=== PATIENT | female | born 1975 | race Caucasian/White ===

== ENCOUNTER 2021-11-19 08:11 | Outpatient (CLI) | payer OTHER ==
[~2021-11-19 08:11] MED LIST: KETO10TA2 PO; LEVSIN/SL0.125 MG SL; TAMS0.4C PO
== END 2021-11-19 08:17 | disposition home or self-care (01) ==
LOC: SONOGRAMA 08:11
DX: K76.0 Fatty (change of) liver, not elsewhere classified (principal)

== ENCOUNTER 2022-02-20 06:47 | Outpatient (CLI) | payer OTHER | END 2022-02-20 06:48 | disposition home or self-care (01) | LOC: LAB 06:47 | PROVIDERS: ATTEND Surgery | DX: D46.4 Refractory anemia, unspecified (principal); E11.9 Type 2 diabetes mellitus without complications; E03.9 Hypothyroidism, unspecified; E54 Ascorbic acid deficiency; E55.9 Vitamin D deficiency, unspecified; D51.9 Vitamin B12 deficiency anemia, unspecified; B96.81 Helicobacter pylori [H. pylori] as the cause of diseases classified elsewhere ==

== ENCOUNTER 2022-02-21 15:33 | Outpatient (CLI) | payer OTHER | END 2022-02-21 15:37 | disposition home or self-care (01) | LOC: LAB 15:33 | PROVIDERS: ATTEND Surgery | DX: D46.4 Refractory anemia, unspecified (principal); E11.9 Type 2 diabetes mellitus without complications; E03.9 Hypothyroidism, unspecified; E54 Ascorbic acid deficiency; E55.9 Vitamin D deficiency, unspecified; D51.9 Vitamin B12 deficiency anemia, unspecified; B96.81 Helicobacter pylori [H. pylori] as the cause of diseases classified elsewhere ==

== ENCOUNTER 2022-04-25 14:16 | Outpatient (CLI) | payer OTHER | END 2022-04-25 14:17 | disposition home or self-care (01) | LOC: LAB 14:16 | DX: O11.1 Pre-existing hypertension with pre-eclampsia, first trimester (principal); U07.1 COVID-19 ==

== ENCOUNTER 2022-06-08 09:17 | Outpatient (CLI) | payer OTHER | END 2022-06-08 09:19 | disposition home or self-care (01) | LOC: LAB 09:17 | DX: D46.4 Refractory anemia, unspecified (principal); G47.33 Obstructive sleep apnea (adult) (pediatric) ==

== ENCOUNTER 2022-06-21 15:29 | Outpatient (CLI) | payer OTHER | END 2022-06-21 15:33 | disposition home or self-care (01) | LOC: LAB 15:29 | DX: R09.2 Respiratory arrest (principal) ==

== ENCOUNTER 2022-06-26 14:41 | Outpatient (CLI) | payer OTHER | END 2022-06-26 14:45 | disposition home or self-care (01) | LOC: LAB 14:41 | PROVIDERS: ATTEND General Practice | DX: D64.9 Anemia, unspecified (principal) ==

== ENCOUNTER 2022-08-06 16:17 | Outpatient (CLI) | payer OTHER | END 2022-08-06 16:27 | disposition home or self-care (01) | LOC: LAB 16:17 | PROVIDERS: ATTEND Internal Medicine | DX: N39.0 Urinary tract infection, site not specified (principal); Z00.00 Encounter for general adult medical examination without abnormal findings ==

== ENCOUNTER 2022-09-09 16:41 | Outpatient (CLI) | payer OTHER | END 2022-09-09 16:45 | disposition home or self-care (01) | LOC: LAB 16:41 | PROVIDERS: ATTEND Surgery | DX: K76.0 Fatty (change of) liver, not elsewhere classified (principal) ==

== ENCOUNTER 2022-09-17 10:58 | Outpatient (CLI) | payer OTHER | END 2022-09-17 10:59 | disposition home or self-care (01) | LOC: LAB 10:58 | DX: J11.1 Influenza due to unidentified influenza virus with other respiratory manifestations (principal) ==

== ENCOUNTER 2022-09-18 09:28 | Emergency (ER) | payer OTHER ==
[~2022-09-18] VITALS: Ht 167.6 cm; Wt 112.5 kg
== END 2022-09-18 13:24 | disposition home or self-care (01) ==
LOC: ER 09:28
DX: J11.1 Influenza due to unidentified influenza virus with other respiratory manifestations (principal)

== ENCOUNTER 2022-10-05 10:07 | Outpatient (CLI) | payer OTHER | END 2022-10-05 10:10 | disposition home or self-care (01) | LOC: LAB 10:07 | PROVIDERS: ATTEND Surgery | DX: E03.9 Hypothyroidism, unspecified (principal); K21.9 Gastro-esophageal reflux disease without esophagitis; Z11.59 Encounter for screening for other viral diseases ==

== ENCOUNTER 2022-10-11 16:40 | Outpatient (CLI) | payer OTHER | END 2022-10-11 16:54 | disposition home or self-care (01) | LOC: LAB 16:40 | PROVIDERS: ATTEND Surgery | DX: D46.4 Refractory anemia, unspecified (principal); E11.9 Type 2 diabetes mellitus without complications; E03.9 Hypothyroidism, unspecified; E54 Ascorbic acid deficiency; E55.9 Vitamin D deficiency, unspecified; D51.9 Vitamin B12 deficiency anemia, unspecified; R19.5 Other fecal abnormalities; Z11.59 Encounter for screening for other viral diseases ==

== ENCOUNTER 2023-02-05 15:56 | Outpatient (CLI) | payer OTHER | END 2023-02-05 15:58 | disposition home or self-care (01) | LOC: LAB 15:56 | PROVIDERS: ATTEND Surgery | DX: D46.4 Refractory anemia, unspecified (principal); E11.9 Type 2 diabetes mellitus without complications; E03.9 Hypothyroidism, unspecified; E54 Ascorbic acid deficiency; E55.9 Vitamin D deficiency, unspecified; D51.9 Vitamin B12 deficiency anemia, unspecified; R19.5 Other fecal abnormalities; Z11.59 Encounter for screening for other viral diseases ==

== ENCOUNTER 2024-05-21 14:33 | Inpatient (IN) | payer OTHER ==
[~2024-05-21] VITALS: Ht 167.6 cm; Wt 76.2 kg
--- NOTE | 2024-05-21 15:52 | NUR ---
PTE ALERTA Y ORIENTADA X3 REFIERE DOLOR ABDOMINAL DEL LADO DERECHO. SE MIDEN S/V Y SE UBICA.
[2024-05-21] MEDS ORDERED: FAMOtidine 10 MG/ML (4ML VIAL) IV ONE (16:45)
[2024-05-21] MEDS ORDERED: KETOROLAC TROMETHAMINE 60 MG VIAL IM ONE ×2 (17:00→17:37)
[2024-05-21] MEDS ORDERED: 0.9 % SODIUM CHLORIDE 1,000 ML IV ONE (17:00)
[2024-05-21] MEDS ORDERED: FAMOTIDINE/PF 20 MG/2 ML VIAL ONE (17:37)
--- NOTE | 2024-05-21 18:49 | NUR ---
PACIENTE ALERTA Y ORIENTADA X3. SE EDUCA SOBRE PROCESO DE MEDICAMENTOS, MUESTRAS Y CANALIZACION, REFIERE ENTENDER. SE EJECUTAN ORDENES BAJO MEDIDAS ASEPTICAS.
[2024-05-21 19:04] LABS: HEMATOCRIT 37.9 % (36.0-45.00); MEAN CELL VOLUME 72.8 fL (80.00-100.00); MEAN CORPUSCULAR HEMOGLOBIN 23.1 pg (27.00-32.0); MEAN CORPUSCULAR HGB CONC 31.7 g/dl (32.0-36.0); PLATELET COUNT 179 K/uL (150-450); RED CELL DISTRIBUTION WIDTH 19.4 % (11.5-14.5)
[2024-05-21 19:29] LABS: INR 1.06; PROTHROMBIN TIME 11.5 SECONDS (9.0-11.5)
[2024-05-21 19:36] LABS: ALBUMIN 3.3 gm/dL (3.4-5.0); ALKALINE PHOSPHATASE 70 U/L (50-136); ALT/SGPT 19 U/L (12-78); ANION GAP 7 (10.0-20.0); AST/SGOT 17 U/L (15-37); BILIRUBIN TOTAL 0.47 mg/dL (0.3-1.2); BLOOD UREA NITROGEN 12 mg/dL (7-18); BUN CREA RATIO 19 (7.0-25.0); CALCIUM 9.1 mg/dL (8.5-10.1); CARBON DIOXIDE 29 mEq/L (21-32); CHLORIDE 105 mmol/L (98-107); CREATININE SERUM 0.63 mg/dL (0.55-1.02); GFR 100.86; GLOBULINA 3.8 G/DL (2.4-3.5); GLUCOSE FASTING 87 mg/dL (65-100); OSMOLALITY SERUM 273 MOSM/KG (275-295); POTASSIUM 4.03 mEq/L (3.5-5.1); SODIUM 137 mmol/L (136-145); TOTAL PROTEIN 7.1 gm/dL (6.4-8.2)
[2024-05-21 19:42] LABS: HCG QUANTITATIVE < 1 mUI/mL (1-3)
[2024-05-21 19:52] LABS: URINE APPEARANCE Clear; URINE BILIRRUBIN Negative (NEGATIVE); URINE BLOOD Negative; URINE COLOR Yellow; URINE GLUCOSE Negative (NEGATIVE); URINE KETONE 15 (NEGATIVE); URINE LEUKOCYTE Trace; URINE NITRATE Negative; URINE PROTEIN Negative (NEGATIVE); URINE UROBILINOGEN 0.2 E.U./dl
[2024-05-21 19:56] LABS: URINE BACTERIA 430.6 uL (0.0-1933); URINE EPITHELIAL CELLS 25.7 uL (0.0-38.8); URINE RBC 7.5 uL (0.0-20.8); URINE WBC 25.6 uL (0.0-23.2)
[2024-05-21] MEDS ORDERED: CEFTRIAXONE SODIUM 1,000 MG VIAL IV ONE (21:00)
[2024-05-21] MEDS ORDERED: PIPERACILLIN/TAZOBACTAM SODIUM 3.375 GM VIAL IV ONE (22:45)
[2024-05-21] MEDS ORDERED: FAMOTIDINE/PF 20 MG in 0.9 % SODIUM CHLORIDE 8 ML IV PUSH SCH (23:05)
[2024-05-21] MEDS ORDERED: MEPERIDINE HCL/PF 25 MG/ML VIAL IM PRN (23:15)
[2024-05-21] MEDS ORDERED: 0.9 % SODIUM CHLORIDE 1,000 ML IV SCH (23:15)
[2024-05-21] MEDS ORDERED: ONDANSETRON HCL 4 MG in 0.9 % SODIUM CHLORIDE 50 ML IV PRN (23:15)
[2024-05-21] MEDS ORDERED: ACETAMINOPHEN 500 MG GEL..CAP PO PRN (23:15)
[2024-05-22] MEDS ORDERED: PIPERACILLIN/TAZOBACTAM SODIUM 4.5 GM in 0.9 % SODIUM CHLORIDE 100 ML IV SCH
[2024-05-22 03:26] LABS: PARTIAL THROMBOPLASTIN TIME 31.7 SECONDS (22.0-34.0); PROTHROMBIN TIME 10.9 SECONDS (9.0-11.5)
[2024-05-22 04:00] VITALS: BP 121/80; O2SAT 100
[2024-05-22 09:00] VITALS: BP 119/81; O2SAT 100
[2024-05-22] MEDS ORDERED: BUPIVACAINE HCL/MPF 0.5% 30ML VIAL ONE (09:31)
[2024-05-22] MEDS ORDERED: SUGAMMADEX SODIUM 200 MG/2 ML VIAL IV ONE (11:15)
[2024-05-22] MEDS ORDERED: LIDOCAINE HCL 1%/EPINEPHRINE 20ML VIAL IJ ONE (11:15)
[2024-05-22] MEDS ORDERED: BUPIVACAINE HCL 30 ML VIAL IJ ONE (11:15)
[2024-05-22] MEDS ORDERED: MORPHINE SULFATE 4 MG/ML VIAL IV ONE ×2 (11:55→12:25)
[2024-05-22] MEDS ORDERED: ONDANSETRON HCL 2 MG/ML VIAL IV PRN (12:00)
[2024-05-22] MEDS ORDERED: KETOROLAC TROMETHAMINE 30 MG VIAL IV PRN (12:15)
[2024-05-22] MEDS ORDERED: 0.9 % SODIUM CHLORIDE 1,000 ML IV SCH (12:15)
[2024-05-22 18:47] VITALS: BP 138/83
[2024-05-23 02:28] VITALS: BP 102/69; O2SAT 96
[2024-05-23] MEDS ORDERED: FAMOTIDINE/PF 20 MG/2 ML VIAL ONE (07:30)
[2024-05-23 08:17] LABS: HEMATOCRIT 32.1 % (36.0-45.00); HEMOGLOBIN 10.6 g/dL (12.0-15.00); MEAN CELL VOLUME 72.1 fL (80.00-100.00); MEAN CORPUSCULAR HEMOGLOBIN 23.8 pg (27.00-32.0); PLATELET COUNT 187 K/uL (150-450); RED BLOOD COUNT 4.46 M/uL (4.00-6.00); RED CELL DISTRIBUTION WIDTH 19.4 % (11.5-14.5)
[2024-05-23 08:20] LABS: CREATININE SERUM 0.62 mg/dL (0.55-1.02); GFR 102.74; POTASSIUM 4.16 mEq/L (3.5-5.1)
[2024-05-23 09:54] VITALS: BP 121/81; O2SAT 97
[2024-05-23 16:57] VITALS: BP 157/85; O2SAT 99
[2024-05-24 02:42] VITALS: O2SAT 97
[2024-05-24] MEDS ORDERED: FAMOTIDINE/PF 20 MG/2 ML VIAL ONE (07:39)
[2024-05-24 09:09] VITALS: BP 128/83
== END 2024-05-24 22:19 | disposition home or self-care (01) | DRG 331 ==
LOC: ER 14:35 → MEDJ 23:13
PROVIDERS: General Practice; Surgery; ADMIT Internal Medicine; ATTEND Internal Medicine
PROC: BW21YZZ Computerized Tomography (CT Scan) of Abdomen and Pelvis using Other Contrast (ICD-10-PCS; 2024-05-21)
PROC: 0WQF4ZZ Repair Abdominal Wall, Percutaneous Endoscopic Approach (ICD-10-PCS; 2024-05-22)
PROC: 0DTJ4ZZ Resection of Appendix, Percutaneous Endoscopic Approach (ICD-10-PCS; 2024-05-22)
PROC: 0W9G4ZZ Drainage of Peritoneal Cavity, Percutaneous Endoscopic Approach (ICD-10-PCS; 2024-05-22)
PROC: 0DBH4ZZ Excision of Cecum, Percutaneous Endoscopic Approach (ICD-10-PCS; principal; 2024-05-22 08:30)
DX: K35.891 Other acute appendicitis without perforation, with gangrene (principal); K43.9 Ventral hernia without obstruction or gangrene

== ENCOUNTER 2024-06-15 16:23 | Outpatient (CLI) | payer OTHER ==
[2024-06-15 16:50] LABS: HEMATOCRIT 34.7 % (36.0-45.00); HEMOGLOBIN 11.2 g/dL (12.0-15.00); MEAN CELL VOLUME 73.2 fL (80.00-100.00); MEAN CORPUSCULAR HEMOGLOBIN 23.5 pg (27.00-32.0); MEAN CORPUSCULAR HGB CONC 32.2 g/dl (32.0-36.0); PLATELET COUNT 236 K/uL (150-450); RED BLOOD COUNT 4.75 M/uL (4.00-6.00); RED CELL DISTRIBUTION WIDTH 17.4 % (11.5-14.5)
[2024-06-15 18:05] LABS: ALBUMIN 3.2 gm/dL (3.4-5.0); BILIRUBIN TOTAL 0.29 mg/dL (0.3-1.2); CALCIUM 8.9 mg/dL (8.5-10.1); CHOL HDL RATIO 2.4 (0-5.0); CREATININE SERUM 0.59 mg/dL (0.55-1.02); GFR 108.79; GLOBULINA 3.3 G/DL (2.4-3.5); POTASSIUM 4.14 mEq/L (3.5-5.1); T4 TOTAL 8.06 UG/DL (4.8-13.9); TOTAL PROTEIN 6.5 gm/dL (6.4-8.2)
[2024-06-15 18:06] LABS: TSH 0.336 uIU/mL (0.358-3.74)
[2024-06-16 09:40] LABS: FOLIC ACID > 20.00 ng/ml (4.78-20); VITAMIN D3 25 HYDROXY 50.98 ng/ml (30-120)
== END 2024-06-15 16:30 | disposition home or self-care (01) ==
LOC: LAB 16:23
PROVIDERS: ATTEND Surgery
DX: D46.4 Refractory anemia, unspecified (principal); E11.9 Type 2 diabetes mellitus without complications; E54 Ascorbic acid deficiency; E55.9 Vitamin D deficiency, unspecified; D51.9 Vitamin B12 deficiency anemia, unspecified; R19.5 Other fecal abnormalities; Z11.59 Encounter for screening for other viral diseases

== ENCOUNTER 2024-07-13 16:13 | Outpatient (CLI) | payer OTHER ==
[2024-07-13 16:52] LABS: HEMOGLOBIN 12.2 g/dL (12.0-15.00); MEAN CELL VOLUME 76.7 fL (80.00-100.00); MEAN CORPUSCULAR HEMOGLOBIN 24.7 pg (27.00-32.0); MEAN CORPUSCULAR HGB CONC 32.2 g/dl (32.0-36.0); PLATELET COUNT 286 K/uL (150-450); RED BLOOD COUNT 4.96 M/uL (4.00-6.00); RED CELL DISTRIBUTION WIDTH 18.7 % (11.5-14.5)
[2024-07-13 17:38] LABS: ALBUMIN 3.7 gm/dL (3.4-5.0); BILIRUBIN TOTAL 0.38 mg/dL (0.3-1.2); CALCIUM 8.9 mg/dL (8.5-10.1); CHOL HDL RATIO 1.8 (0-5.0); CREATININE SERUM 0.7 mg/dL (0.55-1.02); GFR 89.31; GLOBULINA 3.5 G/DL (2.4-3.5); POTASSIUM 4.14 mEq/L (3.5-5.1); T4 TOTAL 7.9 UG/DL (4.8-13.9); TOTAL PROTEIN 7.2 gm/dL (6.4-8.2)
[2024-07-13 19:40] LABS: TSH 0.209 uIU/mL (0.358-3.74)
[2024-07-14 13:55] LABS: FOLIC ACID > 20.00 ng/ml (4.78-20); T3 TOTAL 0.844 ng/ml (0.846-2.02); VITAMIN D3 25 HYDROXY 66.93 ng/ml (30-120)
== END 2024-07-13 16:22 | disposition home or self-care (01) ==
LOC: LAB 16:13
PROVIDERS: ATTEND Surgery
DX: N39.0 Urinary tract infection, site not specified (principal); D46.4 Refractory anemia, unspecified; E11.9 Type 2 diabetes mellitus without complications; E03.9 Hypothyroidism, unspecified; E54 Ascorbic acid deficiency; E55.9 Vitamin D deficiency, unspecified; D51.9 Vitamin B12 deficiency anemia, unspecified; R19.5 Other fecal abnormalities; Z11.59 Encounter for screening for other viral diseases

== ENCOUNTER 2024-08-23 14:09 | Outpatient (CLI) | payer OTHER | END 2024-08-23 14:11 | disposition home or self-care (01) | LOC: SONOGRAMA 14:09 | PROVIDERS: ATTEND Specialist | DX: D25.2 Subserosal leiomyoma of uterus (principal) ==

== ENCOUNTER → 2024-08-24 06:05 | Outpatient (CLI) | payer OTHER ==
[~2024-08-24 06:05] MED LIST changes: +TRAMADOL HCL E100 M1 PO
[2024-08-24 07:56] LABS: HEMATOCRIT 35.9 % (36.0-45.00); HEMOGLOBIN 11.9 g/dL (12.0-15.00); MEAN CELL VOLUME 76.7 fL (80.00-100.00); MEAN CORPUSCULAR HEMOGLOBIN 25.3 pg (27.00-32.0); PLATELET COUNT 232 K/uL (150-450); RED BLOOD COUNT 4.68 M/uL (4.00-6.00); RED CELL DISTRIBUTION WIDTH 15.9 % (11.5-14.5)
[2024-08-24 08:06] LABS: ALBUMIN 3.5 gm/dL (3.4-5.0); BILIRUBIN TOTAL 0.44 mg/dL (0.3-1.2); CALCIUM 8.8 mg/dL (8.5-10.1); CHOL HDL RATIO 2.1 (0-5.0); CREATININE SERUM 0.58 mg/dL (0.55-1.02); GFR 110.49; GLOBULINA 3.6 G/DL (2.4-3.5); POTASSIUM 3.94 mEq/L (3.5-5.1); T4 TOTAL 7.95 UG/DL (4.8-13.9); TOTAL PROTEIN 7.1 gm/dL (6.4-8.2); TSH 0.625 uIU/mL (0.358-3.74)
[2024-08-24 11:01] LABS: FOLIC ACID > 20.00 ng/ml (4.78-20); T3 TOTAL 0.916 ng/ml (0.846-2.02); VITAMIN D3 25 HYDROXY 40.81 ng/ml (30-120)
[2024-08-26 05:06] LABS: CA 125 8.9 U/mL (0.0-38.1); FOLLICLE STIMULATING HORMONE 14.9 mIU/mL (.)
== END | disposition home or self-care (01) ==
LOC: LAB 06:05
PROVIDERS: ATTEND Specialist
DX: D64.9 Anemia, unspecified (principal); E11.9 Type 2 diabetes mellitus without complications; E03.9 Hypothyroidism, unspecified; E54 Ascorbic acid deficiency; D51.9 Vitamin B12 deficiency anemia, unspecified; R19.5 Other fecal abnormalities; Z11.59 Encounter for screening for other viral diseases; E16.2 Hypoglycemia, unspecified; E78.5 Hyperlipidemia, unspecified; E55.9 Vitamin D deficiency, unspecified; Z12.11 Encounter for screening for malignant neoplasm of colon; N91.1 Secondary amenorrhea; E22.1 Hyperprolactinemia

== ENCOUNTER 2024-08-26 19:05 | Emergency (ER) | payer OTHER ==
[~2024-08-26] VITALS: Ht 170.2 cm; Wt 73.9 kg
[~2024-08-26 19:05] MED LIST changes: -TRAMADOL HCL E100 M1 PO
[2024-08-26] MEDS ORDERED: FAMOTIDINE/PF 20 MG/2 ML VIAL ONE (19:56)
[2024-08-26] MEDS ORDERED: KETOROLAC TROMETHAMINE 30 MG VIAL ONE (19:56)
[2024-08-26] MEDS ORDERED: KETOROLAC TROMETHAMINE 30 MG VIAL IV ONE (20:00)
[2024-08-26] MEDS ORDERED: FAMOtidine 10 MG/ML (4ML VIAL) IV PUSH ONE (20:00)
[2024-08-26 21:10] LABS: ALBUMIN 3.6 gm/dL (3.4-5.0); BILIRUBIN TOTAL 0.27 mg/dL (0.3-1.2); CALCIUM 8.9 mg/dL (8.5-10.1); CREATININE SERUM 0.74 mg/dL (0.55-1.02); GFR 83.41; GLOBULINA 3.5 G/DL (2.4-3.5); HEMOGLOBIN 11.3 g/dL (12.0-15.00); MEAN CELL VOLUME 77.6 fL (80.00-100.00); MEAN CORPUSCULAR HEMOGLOBIN 25.1 pg (27.00-32.0); MEAN CORPUSCULAR HGB CONC 32.3 g/dl (32.0-36.0); PLATELET COUNT 240 K/uL (150-450); POTASSIUM 4.01 mEq/L (3.5-5.1); RED BLOOD COUNT 4.51 M/uL (4.00-6.00); RED CELL DISTRIBUTION WIDTH 15.9 % (11.5-14.5); TOTAL PROTEIN 7.1 gm/dL (6.4-8.2)
[2024-08-26] MEDS ORDERED: KETO10TA2 PO (22:23)
[2024-08-26] MEDS ORDERED: TRAMADOL HCL E100 M1 PO (22:28)
== END 2024-08-26 22:34 | disposition home or self-care (01) ==
LOC: ER 19:07
PROVIDERS: General Practice
DX: K80.20 Calculus of gallbladder without cholecystitis without obstruction (principal); R10.11 Right upper quadrant pain; R10.9 Unspecified abdominal pain

== ENCOUNTER → 2024-10-04 06:07 | Outpatient (CLI) | payer OTHER ==
[~2024-10-04 06:07] MED LIST changes: +TRAMADOL HCL E100 M1 PO
[2024-10-04 07:04] LABS: BASO % 0.8 % (0.1-1.2); EOS # 0.04 (0.04-0.54); EOS % 1.1 % (0.7-7.0); HEMATOCRIT 35.4 % (34.1-44.9); HEMOGLOBIN 11.3 g/dL (11.2-15.7); LYMPH # 1.74 (1.18-3.74); LYMPH % 46.2 % (19.3-53.1); MONO # 0.34 (0.24-0.82); NEUT # 1.62 (1.56-6.13); NEUT % 42.9 % (34.0-71.1); PLATELET COUNT 313 K/uL (163-369); RED BLOOD COUNT 4.71 M/uL (3.93-5.22); RED CELL DISTRIBUTION WIDTH 15.5 % (11.6-14.4)
[2024-10-04 07:20] LABS: PH,URINE 5.5 (5.0-8.0); URINE APPEARANCE Clear; URINE BILIRRUBIN Negative (NEGATIVE); URINE BLOOD Negative; URINE COLOR Yellow; URINE GLUCOSE Negative (NEGATIVE); URINE KETONE Negative (NEGATIVE); URINE LEUKOCYTE Negative; URINE NITRATE Negative; URINE PROTEIN Negative (NEGATIVE); URINE UROBILINOGEN 0.2 E.U./dl
[2024-10-04 07:22] LABS: URINE BACTERIA 68.5 uL (0.0-1933); URINE CAST 0.44 uL (0.0-1.40); URINE EPITHELIAL CELLS 10.2 uL (0.0-38.8); URINE RBC 5.8 uL (0.0-20.8); URINE WBC 11.3 uL (0.0-23.2)
[2024-10-04 08:01] LABS: ERYTHROCYTE SEDIMENTATION RATE 9 mm/hr (0-20); INR 0.94; PARTIAL THROMBOPLASTIN TIME 29.3 SECONDS (22.0-34.0); PROTHROMBIN TIME 10.3 SECONDS (9.0-11.5)
[2024-10-04 08:13] LABS: ALBUMIN 3.7 gm/dL (3.4-5.0); BILIRUBIN TOTAL 0.48 mg/dL (0.3-1.2); CHOL HDL RATIO 1.8 (0-5.0); CREATININE SERUM 0.61 mg/dL (0.55-1.02); GFR 104.24; GLOBULINA 3.4 G/DL (2.4-3.5); POTASSIUM 3.95 mEq/L (3.5-5.1); T4 FREE 1.03 NG/ML (0.76-1.46); TOTAL PROTEIN 7.1 gm/dL (6.4-8.2); TSH 0.843 uIU/mL (0.358-3.74)
[2024-10-04 11:10] LABS: ob NEGATIVE (NEGATIVE)
== END | disposition home or self-care (01) ==
LOC: LAB 06:07
PROVIDERS: ATTEND Internal Medicine
DX: D64.9 Anemia, unspecified (principal); E11.8 Type 2 diabetes mellitus with unspecified complications; I48.91 Unspecified atrial fibrillation; N39.0 Urinary tract infection, site not specified; E03.9 Hypothyroidism, unspecified; M35.1 Other overlap syndromes; E11.9 Type 2 diabetes mellitus without complications; E55.9 Vitamin D deficiency, unspecified; Z12.11 Encounter for screening for malignant neoplasm of colon; E78.2 Mixed hyperlipidemia

== ENCOUNTER 2024-10-20 11:02 | Outpatient (CLI) | payer OTHER | END 2024-10-20 11:07 | disposition home or self-care (01) | LOC: MAMO-SONO 11:02 | PROVIDERS: ATTEND Specialist | DX: N60.01 Solitary cyst of right breast (principal); N60.02 Solitary cyst of left breast ==

== ENCOUNTER 2024-10-25 05:18 | Day surgery (SDC) | payer OTHER ==
[2024-10-25] MEDS ORDERED: LIDOCAINE HCL 1%/EPINEPHRINE 20ML VIAL IJ ONE (07:47)
[2024-10-25] MEDS ORDERED: BUPIVACAINE HCL/MPF 0.5% 30ML VIAL ONE (07:47)
[2024-10-25] MEDS ORDERED: CEFAZOLIN SODIUM 1,000 MG VIAL ONE (07:47)
[2024-10-25] MEDS ORDERED: MORPHINE SULFATE 4 MG/ML VIAL IV ONE (11:20)
== END 2024-10-25 12:30 | disposition home or self-care (01) ==
LOC: CIR.AMB 05:18
PROVIDERS: ATTEND Student in an Organized Health Care Education/Training Program
DX: K80.10 Calculus of gallbladder with chronic cholecystitis without obstruction (principal)

== ENCOUNTER 2025-03-23 06:07 | Outpatient (CLI) | payer OTHER ==
[2025-03-23 07:02] LABS: BASO % 1.1 % (0.1-1.2); EOS # 0.08 (0.04-0.54); EOS % 2.2 % (0.7-7.0); LYMPH # 2.16 (1.18-3.74); LYMPH % 58.1 % (19.3-53.1); MEAN PLATELET VOLUME 10.50 fl (9.4-12.4); MONO # 0.32 (0.24-0.82); MONO % 8.6 % (4.7-12.5); NEUT # 1.12 (1.56-6.13); NEUT % 30.0 % (34.0-71.1); RED CELL DISTRIBUTION WIDTH 14.9 % (11.6-14.4)
[2025-03-23 07:48] LABS: ALT/SGPT 21.0 U/L (12-78); AST/SGOT 15.0 U/L (15-37); BILIRUBIN TOTAL 0.45 mg/dL (0.3-1.2); BUN CREA RATIO 24.0 (7.0-25.0); CHOL HDL RATIO 2.0 (0-5.0); CREATININE SERUM 0.68 mg/dL (0.55-1.02); FE 42.0 ug/dl (50-170); GFR 91.96; GLOBULINA 3.5 G/DL (2.4-3.5); GLUCOSE FASTING 82.0 mg/dL (65-100); HDL 98.0 mg/dl (40-60); LDL 85.0 mg/dl (0-130); OSMOLALITY SERUM 280.0 MOSM/KG (275-295); T4 TOTAL 7.78 UG/DL (4.8-13.9); TSH 0.891 uIU/mL (0.358-3.74); VLDL 12.0 (0-39)
[2025-03-23 09:34] LABS: FOLIC ACID 15.87 ng/ml (4.78-20); T3 TOTAL 1.09 ng/ml (0.846-2.02); VITAMIN D3 25 HYDROXY 38.3 ng/ml (30-120)
== END 2025-03-23 06:12 | disposition home or self-care (01) ==
LOC: LAB 06:07
DX: D46.9 Myelodysplastic syndrome, unspecified (principal); E11.9 Type 2 diabetes mellitus without complications; E03.9 Hypothyroidism, unspecified; E54 Ascorbic acid deficiency; E55.9 Vitamin D deficiency, unspecified; D51.9 Vitamin B12 deficiency anemia, unspecified; R19.5 Other fecal abnormalities; Z11.59 Encounter for screening for other viral diseases